=== PATIENT | female | born 1995 | race Two or more races ===

== ENCOUNTER 2023-02-04 06:56 | Emergency (ER) | payer OTHER ==
[~2023-02-04] VITALS: Ht 177.8 cm; Wt 90.7 kg
[2023-02-04 07:00] VITALS: BP 120/69
--- NOTE | 2023-02-04 07:10 | NUR ---
RECEIVED PT 28 YRS FEMALE CAME BY ABIMAEL ON COSTED FOR CLEAR O.K TO BOOK SEEN BY DR. RAMOS ON TRIAGE AREA
[2023-02-04] MEDS ORDERED: LIDOCAINE 1%-EPI 1:100,000 20 ML VIAL ONE (07:12)
--- NOTE | 2023-02-04 07:20 | NUR ---
IRREGATED LAUCERATION ON BACK OF HEAD AND HERE HAND
[2023-02-04] MEDS ORDERED: IBUP-1955 PO (07:24)
[2023-02-04] MEDS ORDERED: ACETAMINOPHEN 325 MG TABLET PO ONE (07:30)
[2023-02-04] MEDS ORDERED: TDAP [DIPH/PERTUSSIS/TET] 0.5 ML VIAL IM ONE (07:30)
[2023-02-04] MEDS ORDERED: BACI/NEOM/POLY B OINT PKT 1 UDPKT PACKET TP ONE (07:30)
[2023-02-04] MEDS ORDERED: LIDOCAINE 1% INJ 50 ML MDV IJ ONE (07:30)
--- NOTE | 2023-02-04 07:37 | NUR ---
TO CT SCAN OF HEAD
--- NOTE | 2023-02-04 07:54 | NUR ---
maritza at bed side [id number] [id number] AND SAMUEL # [id number]
--- NOTE | 2023-02-04 08:31 | NUR ---
[facility] REALEASED PT FROM COSTED REMOVED HAND CALF AND FALLOW UP WITH TECKET
--- NOTE | 2023-02-04 09:15 | NUR ---
Patient eloped from facility. ER MD notified.
== END 2023-02-04 09:35 | disposition left against medical advice (07) ==
LOC: ER 06:57
DX: S01.01XA Laceration without foreign body of scalp, initial encounter (principal); S83.91XA Sprain of unspecified site of right knee, initial encounter; S46.912A Strain of unspecified muscle, fascia and tendon at shoulder and upper arm level, left arm, initial encounter; S63.612A Unspecified sprain of right middle finger, initial encounter; M79.662 Pain in left lower leg; R41.82 Altered mental status, unspecified; J45.909 Unspecified asthma, uncomplicated; F17.200 Nicotine dependence, unspecified, uncomplicated; Y08.09XA Assault by strike by other specified type of sport equipment, initial encounter; Y93.89 Activity, other specified; Y92.89 Other specified places as the place of occurrence of the external cause; Y99.8 Other external cause status
CPT/HCPCS: 99284; 70450; 71045; 73120; 73560; 73030; 73590; A6403; J3490

== ENCOUNTER 2023-10-06 22:48 | Emergency (ER) | payer MEDICAID ==
[~2023-10-06] VITALS: Ht 177.8 cm; Wt 81.6 kg
[~2023-10-06 22:48] MED LIST: IBUP-1955 PO
[2023-10-07 00:44] VITALS: BP 115/73; TEMP 98.4; O2SAT 98
[2023-10-07] MEDS ORDERED: OLANZAPINE 5 MG TABLET ONE (00:57)
[2023-10-07] MEDS ORDERED: diphenhydrAMINE HCL ELIX 25 MG/10 ML UDC ONE (00:57)
[2023-10-07] MEDS ORDERED: OLANZAPINE ZYDIS 5 MG TAB.RAPDIS PO ONE (01:00)
[2023-10-07] MEDS ORDERED: DIPHENHYDRAMINE HCL 12.5 MG/5 ML UDC PO ONE (01:00)
== END 2023-10-07 01:54 | disposition home or self-care (01) ==
LOC: ER 22:50
DX: L30.9 Dermatitis, unspecified (principal); F15.10 Other stimulant abuse, uncomplicated; J45.909 Unspecified asthma, uncomplicated; F17.200 Nicotine dependence, unspecified, uncomplicated
CPT/HCPCS: 99283; Q0163 ×2